=== PATIENT | male | born 1950 | race African-American/Black ===

== ENCOUNTER 2023-10-03 14:39 | Emergency (ER) | payer MEDICARE, OTHER ==
[~2023-10-03] VITALS: Ht 180.3 cm; Wt 65.9 kg
[2023-10-03 16:41] VITALS: TEMP 98.4
[2023-10-03] MEDS ORDERED: AMOX1TAB16 PO ×2 (16:42→16:43)
[2023-10-03 16:56] VITALS: BP 118/72; PULSE 92; RESP 16
== END 2023-10-03 16:57 | disposition home or self-care (01) ==
LOC: EMS 14:42
DX: S51.852A Open bite of left forearm, initial encounter (principal); S40.021A Contusion of right upper arm, initial encounter; F17.210 Nicotine dependence, cigarettes, uncomplicated; Z98.890 Other specified postprocedural states; W54.0XXA Bitten by dog, initial encounter; Y93.01 Activity, walking, marching and hiking; Y92.89 Other specified places as the place of occurrence of the external cause; Y99.8 Other external cause status
CPT/HCPCS: 99283; Z7502

== ENCOUNTER 2023-10-14 10:08 | Emergency (ER) | payer MEDICARE, OTHER ==
[~2023-10-14] VITALS: Ht 182.9 cm; Wt 68.2 kg
[~2023-10-14 10:08] MED LIST: AMOX1TAB16 PO
[2023-10-14 10:15] VITALS: BP 154/79; PULSE 90; RESP 16; TEMP 98.3
== END 2023-10-14 11:51 | disposition home or self-care (01) ==
LOC: EMS 10:15
DX: H61.22 Impacted cerumen, left ear (principal); F17.210 Nicotine dependence, cigarettes, uncomplicated
CPT/HCPCS: 69210; 99284; Z7502

== ENCOUNTER 2025-04-26 20:06 | Emergency (ER) | payer MEDICARE, OTHER ==
[~2025-04-26] VITALS: Ht 182.9 cm; Wt 59.5 kg
[~2025-04-26 20:06] MED LIST changes: +AMOX-457 PO; -AMOX1TAB16 PO
[2025-04-26 20:11] VITALS: BP 127/78; PULSE 94; RESP 18; TEMP 97.5; O2SAT 99
[2025-04-26] MEDS: HYDROGEN PEROXIDE 118 ML SOLUTION TP ONE (20:58)
== END 2025-04-26 21:08 | disposition home or self-care (01) ==
LOC: EMS 20:07
DX: H61.23 Impacted cerumen, bilateral (principal); F17.210 Nicotine dependence, cigarettes, uncomplicated; Z98.890 Other specified postprocedural states; Z79.899 Other long term (current) drug therapy
CPT/HCPCS: 69209; 99282; Z7502; Z7610